=== PATIENT | female | born 1930 | race Caucasian/White ===

== ENCOUNTER 2018-06-28 12:40 | Observation (INO) | payer MEDICARE, MEDICAID ==
--- NOTE | 2018-06-28 13:32 | ED Physician Chart ---
ED Chief Complaint/HPI - Patient Information Date Seen:: 06/28/18 Time Seen:: 13:00 Chief Complaint:: cough History of Present Illness:: THIS IS AN 88 YO FEMALE WITH A CONGESTION OF THE CHEST. SHE DENIES CHEST PAIN, ABDOMINAL PAIN AND HEAD PAIN. SHE DENIES FEVER AT HOME, SHE HAS NOT HAD VOMITING OR DIARRHEA. THE COUGH IS NOT PRODUCTIVE OF SPUTUM. SHE IS TAKEN CARE OF BY SON AT HOME. THIS PATIENT WAS AT ANOTHER HOSPITAL LAST WEEK. Allergies:: Allergies Allergy/AdvReac Type Severity Reaction Status Date / Time No Known Allergies Allergy Verified 06/28/18 12:54 Vitals:: Vital Signs - 8 hr 06/28/18 12:54 Temp 97.6 F HR 74 RR 18 BP 136/64 O2 Sat % 97 Historian:: Patient, Family Member Review:: Nurse's Note Reviewed ED Review of Systems - Review of Systems General/Constitutional: No fever, No chills, No weight loss, Weakness, No diaphoresis, No edema, No loss of appetite Skin: No skin lesions, No rash, No bruising Head: No headache, No light-headedness Eyes: No loss of vision, No pain, No diplopia ENT: No earache, No nasal drainage, No sore throat, No tinnitus Neck: No neck pain, No swelling, No thyromegaly, No stiffness, No mass noted Cardio Vascular: No chest pain, No palpitations, No PND, No orthopnea, No edema Pulmonary: No SOB, Cough, No sputum, No wheezing GI: No nausea, No vomiting, No diarrhea, No pain, No melena, No hematochezia, No constipation, No hematemesis G/U: No dysuria, No frequency, No hematuria Musculoskeletal: No bone or joint pain, No back pain, No muscle pain Endocrine: No polyuria, No polydipsia Psychiatric: No prior psych history, No depression, No anxiety, No suicidal ideation Hematopoietic: No bruising, No lymphadenopathy Allergic/Immuno: No urticaria, No angioedema Neurological: No syncope, No focal symptoms, No weakness, No paresthesia, No headache, No seizure, No dizziness, No confusion, No vertigo ED Past Medical History - Past Medical History Obtainable: Yes Past Medical History: HTN, DM, CAD, CVA/TIA, Dyslipidemia, Arthritis Family History: None Social History: Non Smoker, No Alcohol, No Drug Use Surgical History: other (RIGHT KNEE SURGERY) Psychiatricy History: Dementia Family Medical History - Family Member Son History Unknown: Yes Hx Family Cancer: No Hx Family Coronary Artery Disease: No Hx Family Congestive Heart Failure: No Hx Family Hypertension: No Hx Family Stroke: No Hx Family Diabetes: No Hx Family Seizures: No Hx Family Dementia: No Hx Family HIV: No Hx Family COPD: No Hx Family Hepatitis: No Hx Family Psychiatric Problems: No ED Physical Exam - Physical Examination General/Constitutional: Awake, Well-developed, well-nourished, Alert, No distress, GCS 15, Non-toxic appearing, Ambulatory Other Gen/Cons comments:: APPEARS PALE Head: Atraumatic Eyes: Lids, conjuctiva normal, PERRL, EOMI Skin: Nl inspection, No rash, No skin lesions, No ecchymosis, Well hydrated, No lymphadenopathy ENMT: External ears, nose nl, Nasal exam nl, Lips, teeth, gums nl Neck: Nontender, Full ROM w/o pain, No JVD, No nuchal rigidity, No bruit, No mass, No stridor Respiratory: Nl effort/Exclusion, Clear to Auscultation, No Wheeze/Rhonchi/ Rales (BILATERAL MILD RHONCHI HEARD) Cardio Vascular: RRR, No murmur, gallop, rubs, NL S1 S2 GI: No tenderness/rebounding/guarding, No organomegaly, No hernia, Normal BS's, Nondistended, No mass/bruits, No McBurney tenderness : No CVA tenderness Extremities: No tenderness or effusion, Full ROM, normal strength in all extremities, No edema, Normal digits & nails Neuro/Psych: Alert/oriented, DTR's symmetric, Normal sensory exam, Normal motor strength, Judgement/insight normal, Mood normal, Normal gait, No focal deficits Misc: Normal back, No paraspinal tenderness ED Labs/Radiology/EKG Results - Lab Results Results: Abnormal Lab Results 06/28/18 06/28/18 06/28/18 13:05 13:05 13:05 WBC 7.6 RBC 4.70 Hgb 13.4 Hct 41.0 MCV 87.2 MCH 28.5 MCHC Differential 32.7 RDW 12.8 Plt Count 195 MPV 8.3 Neutrophils % 50.4 Lymphocytes % 37.6 Monocytes % 8.6 Eosinophils % 2.9 Basophils % 0.5 PT 10.6 INR 1.02 Sodium 141 Potassium 4.0 Chloride 105 Carbon Dioxide 28.3 Anion Gap 11.7 BUN 20 Creatinine 0.8 Est GFR ( Amer) TNP Est GFR (Non-Af Amer) TNP BUN/Creatinine Ratio 25.0 Glucose 122 H Calcium 9.1 Total Bilirubin 1.1 H AST 13 ALT 11 Alkaline Phosphatase 52 Troponin I Total Protein 7.1 Albumin 3.9 Globulin 3.2 Albumin/Globulin Ratio 1.2 TSH 06/28/18 06/28/18 13:05 13:05 WBC RBC Hgb Hct MCV MCH MCHC Differential RDW Plt Count MPV Neutrophils % Lymphocytes % Monocytes % Eosinophils % Basophils % PT INR Sodium Potassium Chloride Carbon Dioxide Anion Gap BUN Creatinine Est GFR ( Amer) Est GFR (Non-Af Amer) BUN/Creatinine Ratio Glucose Calcium Total Bilirubin AST ALT Alkaline Phosphatase Troponin I 0.01 Total Protein Albumin Globulin Albumin/Globulin Ratio TSH 0.90 - Radiology Results Results: HEAD CT = NAD CHEST CT = CANNOT RULE OUT INFILTRATE - EKG Interpretations EKG Time:: 13:04 Rate & Rhythm: RATE =72, SINUS [place]: LEFT AXIS ED Assessment - Assessment General Assessment: COUGH ED Septic Shock - . Is Septic Shock (SBP<90, OR Lactate>4 mmol\L) present?: No - <6hrs of presentation: Vital Signs: Vital Signs - 8 hr 06/28/18 12:54 Temp 97.6 F HR 74 RR 18 BP 136/64 O2 Sat % 97 ED Reassessment (Disposition) - Reassessment Reassessment:: PNEUMONIA DIABETES MELLITUS Reassessment Condition:: Unchanged - Diagnosis Diagnosis:: PNEUMONIA DIABETES MELLITUS - Patient Disposition Discharge/Transfer:: Acute Care w/in this hosp Admitting Medical Physician:: Josue Trivedi Condition at Disposition:: Unchanged
[2018-06-28 13:35] LABS: % BASOPHILS 0.5 % (0.0-2.0); % EOSINOPHILS 2.9 % (0.0-5.0); % LYMPHOCYTES 37.6 % (20.0-50.0); % MONOCYTES 8.6 % (2.0-10.0); % NEUTROPHILS 50.4 % (40.0-80.0); EOSINOPHILE ABSOLUTE 0.2 Th/cmm (0.1-0.4); HEMOGLOBIN 13.4 gm/dL (12-16); LYMPHOCYTE ABSOLUTE 2.9 Th/cmm (1.5-3.0); MEAN CELL VOLUME 87.2 fl (81-100); MEAN CORPUSCULAR HEMOGLOBIN 28.5 pg (27.0-31.0); MEAN CORPUSCULAR HGB CONC 32.7 pg (28.0-36.0); MEAN PLATELET VOLUME 8.3 fl; MONOCYTE ABSOLUTE 0.7 Th/cmm (0.3-1.0); NEUTROPHILE ABSOLUTE 3.8 Th/cmm (1.8-8.0); PLATELET COUNT 195 Th/cmm (150-400); RED CELL DISTRIBUTION WIDTH 12.8 % (11.5-20.0); WHITE BLOOD COUNT 7.6 Th/cmm (4.8-10.8)
[2018-06-28 13:38] LABS: INR 1.02 (0.5-1.4); PROTHROMBIN TIME (TEST) 10.6 SECONDS (9.5-11.5)
[2018-06-28 13:58] LABS: ALB/GLOB RATIO 1.2 (1.0-1.8); ALBUMIN 3.9 gm/dL (3.7-5.3); ALKALINE PHOSPHATASE 52 U/L (34-104); ANION GAP 11.7 (7.0-16.0); BILIRUBIN,TOTAL 1.1 mg/dL (0.3-1.0); BUN - UREA NITROGEN 20 mg/dL (7-25); CALCIUM SERUM 9.1 mg/dL (8.6-10.3); CARBON DIOXIDE 28.3 mEq/L (21.0-31.0); CHLORIDE 105 mEq/L (98-107); CREATININE - SERUM 0.8 mg/dL (0.6-1.2); GLUCOSE 122 mg/dL (70-105); SGOT 13 U/L (13-39); SGPT/ALT 11 U/L (7-52); SODIUM SERUM 141 mEq/L (136-145); TOTAL PROTEIN,SERUM 7.1 gm/dL (6.0-8.3)
[2018-06-28] MEDS ORDERED: Pneumococcal Vaccine 0.5 mL Vial IM ONE (17:15)
[2018-06-28] MEDS ORDERED: Influenza Vaccine (65 yr & older) 0.5 ml Syr IM ONE (17:15)
[2018-06-28] MEDS: Levofloxacin 250mg/50mL 250 MG/50 ML BAG IV SCH (18:02)
--- NOTE | 2018-06-29 02:13 | History & Physical ---
ADMIT DATE: 06/28/2018 CHIEF COMPLAINT: Cough. HISTORY OF PRESENT ILLNESS: An 88-year-old female with a past medical history of hypertension, diabetes mellitus type 2, coronary artery disease, CVA, TIA, dyslipidemia, and arthritis, admitted to the hospital for congestion of the chest. On initial evaluation, the patient was afebrile with a temperature of 97.6 degrees Fahrenheit and WBC count was 7600. She had nonproductive sputum and she was taken care of by her son at home. She just discharged from the hospital last week. PAST MEDICAL HISTORY: Includes hypertension, diabetes mellitus type 2, coronary artery disease, CVA, TIA, dyslipidemia, arthritis. PAST SURGICAL HISTORY: Right knee surgery. PSYCHIATRIC HISTORY: Dementia. FAMILY HISTORY: Unknown. SOCIAL HISTORY: The patient lives at home. REVIEW OF SYSTEMS: Unable to give any appropriate history. The patient has some nonproductive cough. No shortness of breath. PHYSICAL EXAMINATION: VITAL SIGNS: Current vital signs shows temperature is 98 degrees Fahrenheit, pulse 87, respirations 18, blood pressure 167/62. GENERAL: The patient is comfortable lying in the bed, not in acute distress. HEENT: Head is normocephalic, atraumatic. Oral cavity moist, pink tongue. Eyes: No pallor, no icterus. Pupils PERRLA, EOMI. NECK: Supple, no JVD, no carotid bruit. Trachea midline. CHEST: Bilateral breath sounds. No crackles or wheezing. HEART: S1, S2 within normal limits. Regular rhythm. No murmur, no gallop. ABDOMEN: Soft, nontender, nondistended. Bowel sounds present. EXTREMITIES: No cyanosis, no clubbing, no edema. NEUROLOGIC: Alert and awake. LABORATORY DATA: Current lab shows WBC count 7600, hemoglobin 10.4, hematocrit 41, platelets are 195,000, neutrophil 54.4%. INR is 1.02. Sodium is 141, potassium 4, chloride 105, bicarbonate is 28, BUN is 20, creatinine 0.8, glucose is 122. IMPRESSION: 1. Bronchitis versus pneumonia. 2. Dementia. 3. Diabetes mellitus type 2. 4. Hypertension. 5. Cerebrovascular accident. 6. Arthritis, degenerative joint disease. 7. Coronary artery disease. RECOMMENDATIONS: We will continue home medications and start Levaquin. JOB# [id number]
[2018-06-29 06:55] LABS: % BASOPHILS 0.5 % (0.0-2.0); % EOSINOPHILS 3.9 % (0.0-5.0); % LYMPHOCYTES 34.2 % (20.0-50.0); % MONOCYTES 9.4 % (2.0-10.0); EOSINOPHILE ABSOLUTE 0.3 Th/cmm (0.1-0.4); HEMATOCRIT 37.3 % (41.0-60); HEMOGLOBIN 12.1 gm/dL (12-16); LYMPHOCYTE ABSOLUTE 2.8 Th/cmm (1.5-3.0); MEAN CELL VOLUME 88.7 fl (81-100); MEAN CORPUSCULAR HEMOGLOBIN 28.7 pg (27.0-31.0); MEAN CORPUSCULAR HGB CONC 32.4 pg (28.0-36.0); MEAN PLATELET VOLUME 8.5 fl; MONOCYTE ABSOLUTE 0.8 Th/cmm (0.3-1.0); NEUTROPHILE ABSOLUTE 4.4 Th/cmm (1.8-8.0); PLATELET COUNT 187 Th/cmm (150-400); RED BLOOD COUNT 4.21 Mil/cmm (3.80-5.20); RED CELL DISTRIBUTION WIDTH 12.4 % (11.5-20.0); WHITE BLOOD COUNT 8.3 Th/cmm (4.8-10.8)
[2018-06-29 08:21] LABS: ALB/GLOB RATIO 1.2 (1.0-1.8); ALBUMIN 3.5 gm/dL (3.7-5.3); ALKALINE PHOSPHATASE 46 U/L (34-104); BILIRUBIN,TOTAL 0.8 mg/dL (0.3-1.0); BUN - UREA NITROGEN 18 mg/dL (7-25); CALCIUM SERUM 8.5 mg/dL (8.6-10.3); CHLORIDE 108 mEq/L (98-107); CREATININE - SERUM 0.6 mg/dL (0.6-1.2); GLUCOSE 123 mg/dL (70-105); SGOT 15 U/L (13-39); SGPT/ALT 11 U/L (7-52); SODIUM SERUM 141 mEq/L (136-145); TOTAL PROTEIN,SERUM 6.4 gm/dL (6.0-8.3)
[2018-06-29] MEDS: Calcium Carb/Vit D 500 mg/200 U Tab PO SCH ×3 (08:45→21:19)
--- NOTE | 2018-06-29 09:55 | Diagnostic Imaging Report ---
CHEST X-RAY: AP view INDICATION: Pneumonia COMPARISON: CT chest the prior day FINDINGS: Increased interstitial lung markings are noted with elevation of right hemidiaphragm. No focal consolidation or effusions. Cardiomegaly is noted atherosclerosis. Biapical pleural thickening is noted. Degenerative changes of the spine and shoulders are noted. IMPRESSION: Increased interstitial lung markings probably due to chronic changes, however, a mild degree of congestion and interstitial infiltrates cannot be excluded. Cardiomegaly and atherosclerotic vascular disease.
--- NOTE | 2018-06-29 10:07 | Diagnostic Imaging Report ---
Head CT without intravenous contrast Indication: CVA Comparison: None Technique: Axial images were obtained from the vertex to the skull base without IV contrast. Coronal reconstructions were made. Total DLP: 512, CTDI30 FINDINGS: Exam is limited due to motion. Images of the brain obtained without contrast demonstrate no evidence of an acute hemorrhage. Atrophy is noted with mild white matter disease. There is generalized prominence of the ventricular system. The basal cisterns are patent. No mass effect or midline shift. There is opacification of the right frontal sinus. There is partial opacification of the right ethmoid sinuses. No significant focal soft tissue swelling. IMPRESSION: Limited exam due to motion. No evidence of acute intracranial hemorrhage. Atrophy. Mild white matter disease is noted which is nonspecific and may be due to chronic microvessel ischemia. If necessary MRI follow-up may be obtained. Prominent ventricular system which may be due to patient's atrophy, however, other etiologies such as normal pressure hydrocephalus cannot be excluded. Please correlate clinically. Atherosclerotic vascular disease. Right frontal sinusitis possibly chronic. There is also partial opacification right ethmoid air cells.
--- NOTE | 2018-06-29 10:09 | Diagnostic Imaging Report ---
CT Chest without IV contrast HISTORY: Pain COMPARISON: None. Technique: Axial images were obtained from the base of the neck to the upper abdomen without IV contrast. Reconstructions were made. Total DLP 207, CTD I 7.8 Findings: Evaluation of the mediastinum is limited due to lack of IV contrast. No evidence of mediastinal lymphadenopathy. Heart size is normal. Moderate atherosclerosis is noted. No evidence of an aneurysm. No pericardial effusion. Evaluation lungs demonstrates chronic lung changes with hypoventilatory and atelectatic changes. Minimal right basal opacity atelectatic and consolidative changes are noted. No pleural effusions. The upper abdomen demonstrates evidence of prior cholecystectomy. Degenerative changes of the spine are noted with accentuation of the thoracic kyphosis. IMPRESSION: Hypoventilatory and atelectatic lung changes. Minimal right basal passive atelectatic and consolidative changes are noted. Chronic lung changes. Atherosclerotic vascular disease. Evidence of prior cholecystectomy.
--- NOTE | 2018-06-29 17:03 | Consultation ---
DATE OF CONSULTATION: 06/29/2018 HISTORY OF PRESENT ILLNESS: This is an 88-year-old female patient who has been complaining of upper respiratory tract infection. Following this, the patient was seen and admitted for possible pneumonia. PAST MEDICAL HISTORY: Hypertension, diabetes mellitus type 2, stable angina, history of TIA, CVA, arthritis, dementia, right knee surgery. FAMILY HISTORY: Unremarkable. SOCIAL HISTORY: No history of smoking, alcohol abuse. ALLERGIES: No known allergies. PHYSICAL EXAMINATION: VITAL SIGNS: Blood pressure 130/80, pulse 70, respirations 20, temperature 99. HEAD: Normocephalic. No lumps or bruises. EYES: Pupils equal, reactive to light. Fundi show AV nicking, sclerae white, conjunctivae pink. NECK: Carotid 2+. Normal upstroke. JVD 10 cm above sternal angle. Thyroid not palpable. Lymph nodes not palpable. CHEST: Shows increased AP diameter. No kyphosis, scoliosis. LUNGS: Bilateral bronchovesicular breath sounds. Bilateral wheezing, rhonchi, prolonged expiration. HEART: PMI fifth intercostal space with lateral to midclavicular line. S1, S2, S3, S4. ABDOMEN: Soft. Liver, spleen not palpable. No organomegaly. Bowel sounds active. NEUROLOGIC: No focal neurological deficit. EXTREMITIES: Peripheral pulses 2+. No pedal edema. CLINICAL IMPRESSION: Acute respiratory failure, rule out pneumonia, hypertension, diabetes mellitus type 2, stable angina, cerebrovascular accident with late effect, transient ischemic attack, arthritis, dementia, and right knee surgery. PLAN: IV antibiotics. Monitor the patient closely for arrhythmias. [facility]# [id number]
[2018-06-29] MEDS: Levofloxacin 250mg/50mL 250 MG/50 ML BAG IV SCH (17:14)
--- NOTE | 2018-06-29 21:23 | Consultation ---
DATE OF CONSULTATION: 06/29/2018 PATIENT OF: Dr. Josue Trivedi. Thank you very much for this consultation. HISTORY OF PRESENT ILLNESS: The patient is an 88-year-old female, lives at home and has a caregiver who has had some congestion on and off. The patient apparently is getting weaker and there is a plan to place her in the fpc. The patient was admitted for treatment and management. PAST MEDICAL HISTORY: Dementia. SOCIAL HISTORY: No smoking or drinking. REVIEW OF SYSTEMS: GENERAL: Some weakness and fatigue. CARDIOVASCULAR: No chest pain or palpations. RESPIRATORY: Some congestion, resolved. GASTROINTESTINAL: No nausea or vomiting. PHYSICAL EXAMINATION: GENERAL: Awake, alert, not in acute distress. VITAL SIGNS: Temperature 97.7, pulse 70, respirations 18, blood pressure 136/51, saturation 96%. HEENT: Atraumatic, normocephalic. Pupils react to light and accommodation. Ears, nose, and throat normal. NECK: Supple. No JVD. CHEST: There are good breath sounds. No wheezing or crackles. HEART: Regular rhythm. ABDOMEN: Soft. EXTREMITIES: No edema. LABORATORY DATA: WBC is 8.3, hemoglobin 12.1, platelets 187. Sodium is 141, potassium 4.0, BUN 19, creatinine 0.6. Chest x-ray, some chronic changes, bronchitis picture. IMPRESSION: An 88-year-old female with acute bronchitis, rule out early pneumonia. PLAN: 1. Antibiotics. 2. Nebulizer treatment. 3. Follow up chest x-ray. I will follow the patient with you. Thank you very much for this consultation. JOB# [id number]
--- NOTE | 2018-06-30 06:23 | Progress Notes ---
DATE: 06/29/2018 INTERNAL MEDICINE NOTE SUBJECTIVE: The patient lying in the bed, not in acute distress. No fever, no chills. OBJECTIVE: VITAL SIGNS: Current vital signs shows temperature is 98 degrees Fahrenheit, pulse 69, respirations 20, blood pressure 120/60. GENERAL: The patient is comfortable, in no distress. HEENT: Head is normocephalic and atraumatic. Oral cavity moist. Colt tongue. NECK: Supple, no JVD, no carotid bruit. Trachea midline. CHEST: Bilateral breath sounds. No crackles or wheezing. HEART: S1, S2 within normal limits. Regular rhythm. No murmur or gallop. ABDOMEN: Soft, nontender, nondistended. Bowel sounds present. EXTREMITIES: No cyanosis, no clubbing, no edema. NEUROLOGIC: Alert, awake, oriented x 3. No focal deficit. LABORATORY DATA: Current lab shows WBC count is 8300, hemoglobin 12.1, hematocrit 37.3, platelets are 187,000, neutrophil is 52%. Sodium 141, potassium 4, chloride 108, bicarbonate is 25, BUN is 18, creatinine is 0.6, glucose is 123. Blood culture one of the two sets grew gram-positive cocci in clusters. IMPRESSION: 1. Gram positive cocci in the blood. Staphylococcal bacteremia. 2. Bronchitis and pneumonia. 3. Dementia. 4. Diabetes mellitus type 2. 5. Hypertension. 6. Cerebrovascular accident. 7. Arthritis. 8. Coronary artery disease. RECOMMENDATIONS: Continue Levaquin and add vancomycin IV. JOB# [id number]
--- NOTE | 2018-06-30 08:30 | Diagnostic Imaging Report ---
Portable chest x-ray Time: 0 735 History: Dense of breath Allowing for portable technique the heart size is normal. No focal pulmonary parenchymal processes. No hilar or mediastinal abnormalities. Bony thorax remarkable for degenerative changes. Impression: No acute abnormalities.
[2018-06-30] MEDS: Calcium Carb/Vit D 500 mg/200 U Tab PO SCH ×3 (08:43→20:39)
[2018-06-30] MEDS ORDERED: Probiotic Screen MC PRN (09:00)
[2018-06-30] MEDS: Lactobacillus Rhamnosus GG 15 Billion CFU CAP.SPRINK PO SCH (11:08)
--- NOTE | 2018-06-30 14:15 | Infectious Disease Prog Note ---
Infectious Disease Subjective - Review of Systems Service Date: 06/30/18 Subjective: There is no new change, no fever. Infectious Disease Objective - Results Result Diagrams: 06/29/18 05:45 06/29/18 05:45 Recent Labs: Laboratory Last Values WBC 8.3 Th/cmm (4.8-10.8) 06/29/18 05:45 RBC 4.21 Mil/cmm (3.80-5.20) 06/29/18 05:45 Hgb 12.1 gm/dL (12-16) 06/29/18 05:45 Hct 37.3 % (41.0-60) L 06/29/18 05:45 MCV 88.7 fl (81-100) 06/29/18 05:45 MCH 28.7 pg (27.0-31.0) 06/29/18 05:45 MCHC Differential 32.4 pg (28.0-36.0) 06/29/18 05:45 RDW 12.4 % (11.5-20.0) 06/29/18 05:45 Plt Count 187 Th/cmm (150-400) 06/29/18 05:45 MPV 8.5 fl 06/29/18 05:45 Neutrophils % 52.0 % (40.0-80.0) 06/29/18 05:45 Lymphocytes % 34.2 % (20.0-50.0) 06/29/18 05:45 Monocytes % 9.4 % (2.0-10.0) 06/29/18 05:45 Eosinophils % 3.9 % (0.0-5.0) 06/29/18 05:45 Basophils % 0.5 % (0.0-2.0) 06/29/18 05:45 PT 10.6 SECONDS (9.5-11.5) 06/28/18 13:05 INR 1.02 (0.5-1.4) 06/28/18 13:05 Sodium 141 mEq/L (136-145) 06/29/18 05:45 Potassium 4.0 mEq/L (3.5-5.1) 06/29/18 05:45 Chloride 108 mEq/L (98-107) H 06/29/18 05:45 Carbon Dioxide 25.0 mEq/L (21.0-31.0) 06/29/18 05:45 Anion Gap 12.0 (7.0-16.0) 06/29/18 05:45 BUN 18 mg/dL (7-25) 06/29/18 05:45 Creatinine 0.6 mg/dL (0.6-1.2) 06/29/18 05:45 Est GFR ( Amer) TNP 06/29/18 05:45 Est GFR (Non-Af Amer) TNP 06/29/18 05:45 BUN/Creatinine Ratio 30.0 06/29/18 05:45 Glucose 123 mg/dL (70-105) H 06/29/18 05:45 Calcium 8.5 mg/dL (8.6-10.3) L 06/29/18 05:45 Total Bilirubin 0.8 mg/dL (0.3-1.0) 06/29/18 05:45 AST 15 U/L (13-39) 06/29/18 05:45 ALT 11 U/L (7-52) 06/29/18 05:45 Alkaline Phosphatase 46 U/L (34-104) 06/29/18 05:45 Troponin I 0.01 ng/mL (0.01-0.05) 06/28/18 13:05 Total Protein 6.4 gm/dL (6.0-8.3) 06/29/18 05:45 Albumin 3.5 gm/dL (3.7-5.3) L 06/29/18 05:45 Globulin 2.9 gm/dL 06/29/18 05:45 Albumin/Globulin Ratio 1.2 (1.0-1.8) 06/29/18 05:45 TSH 0.90 uIU/ml (0.34-5.60) 06/28/18 13:05 - Physical Exam Vitals and I&O: Vital Signs Temp 97.0 F 06/30/18 11:54 Pulse 69 06/30/18 11:54 Resp 18 06/30/18 11:54 BP 126/63 06/30/18 11:54 Pulse Ox 99 06/30/18 11:54 Intake & Output 06/29/18 06/30/18 06/30/18 18:59 06:59 18:59 Intake Total 500 240 Balance 500 240 Weight (lbs) 54.431 kg 52.617 kg Intake: Oral 500 240 Other: # Voids 3 2 # Bowel Movements 0 0 Weight Source Bedscale Bedscale Active Medications: Current Medications Calcium/Vitamin D (Oscal W/Vitamin D) 1 tab PO TID [facility]ER[facility] Stop: 08/28/18 08:59 Last Admin: 06/30/18 13:36 Dose: 1 tab Duloxetine HCl (Cymbalta) 30 mg PO DAILY [facility] Stop: 08/28/18 08:59 Last Admin: 06/30/18 11:13 Dose: Not Given Levofloxacin (Levaquin Pb) 250 mg in 50 mls @ 50 mls/hr IV Q24HR [facility] Stop: 08/27/18 17:29 Last Admin: 06/29/18 17:14 Dose: 50 mls/hr Vancomycin HCl 1 gm/ Sodium (Chloride) 250 mls @ 165 mls/hr IV Q24H [facility] Stop: 08/30/18 05:59 Lactobacillus Rhamnosus (Culturelle 15b) 1 each PO DAILY [facility] Stop: 08/29/18 08:59 Last Admin: 06/30/18 11:08 Dose: 1 each Lisinopril (Zestril) 2.5 mg PO DAILY [facility] Stop: 08/28/18 08:59 Last Admin: 06/30/18 08:41 Dose: 2.5 mg Memantine (Namenda) 10 mg PO BID [facility] Stop: 08/28/18 08:59 Last Admin: 06/30/18 08:43 Dose: 10 mg Metformin HCl (Glucophage) 500 mg PO BIDWM [facility] Stop: 08/28/18 07:59 Last Admin: 06/30/18 08:41 Dose: 500 mg Miscellaneous (Vancomycin Iv Per Pharmacy) 1 ea MC PRN [facility] Stop: 08/29/18 05:14 Miscellaneous (Probiotic Screen) 1 ea MC PRN PRN PRN Reason: PROTOCOL Stop: 08/29/18 08:59 Simvastatin (Zocor) 10 mg PO HS [facility] Stop: 08/28/18 20:59 Last Admin: 06/29/18 21:19 Dose: 10 mg Tramadol HCl (Ultram) 50 mg PO Q6H PRN PRN Reason: Severe Pain Stop: 08/27/18 23:47 General: no acute distress, well developed, well nourished HEENT: atraumatic, normocephalic, PERRLA, EOMI Neck: supple, no thyromegaly Cardiovascular: S1S2, regular Lungs: no clear to auscultation bilaterally, no clear to percussion Abdomen: soft, tender, no distended, no mass Extremities: no cyanosis, no clubbing, no edema Neurological: awake, alert, oriented Skin: intact Infectious Disease Assmt/Plan - Assessment Assessment: 1. Gram positive cocci in the blood. Staphylococcal CN contaminant. 2. Bronchitis and pneumonia. 3. Dementia. 4. Diabetes mellitus type 2. 5. Hypertension. 6. Cerebrovascular accident. 7. Arthritis. 8. Coronary artery disease. - Plan Plan: Dc patient. levaquin po for 5 more days.
--- NOTE | 2018-07-01 01:14 | Progress Notes ---
DATE: 06/30/2018 CHIEF COMPLAINT: The patient presented to the ER on 06/28/2018 for cough. HISTORY OF PRESENT ILLNESS AND HOSPITAL COURSE: The patient is an 88-year-old female with a past medical history of hypertension, diabetes mellitus type 2, coronary artery disease, CVA, TIA, dyslipidemia, arthritis and wheelchair bound, brought from the home for congestion and cough. On initial evaluation, the patient was afebrile with temperature 97.6 degrees Fahrenheit and WBC count 7600. A chest x-ray was performed, which was showing no acute infiltrate. CT chest was also performed and it showed hypoventilation, atelectatic changes and minimal right basal passive atelectasis and consolidative changes are noted. Initially, the patient was admitted and levofloxacin was started. The patient was diagnosed to have pneumonia. The patient was doing well. The patient had no fever and no leukocytosis. The patient will be discharged home on Levaquin p.o. for 5 more days. Follow up with Dr. Mullins as an outpatient. DISCHARGE DIAGNOSES: 1. Pneumonia, cough, bronchitis. 2. Diabetes mellitus type 2. 3. Hypertension. 4. Cerebrovascular accident, transient ischemic attack. 5. Arthritis. 6. Coronary artery disease. RECOMMENDATIONS: Continue Levaquin for 5 days and continue his home medications. Follow up with Dr. Mullins. JOB# [id number]
[2018-07-01] MEDS: Lactobacillus Rhamnosus GG 15 Billion CFU CAP.SPRINK PO SCH (09:12)
[2018-07-01] MEDS: Calcium Carb/Vit D 500 mg/200 U Tab PO SCH ×2 (09:13→13:06)
--- NOTE | 2018-07-01 13:09 | Infectious Disease Prog Note ---
Infectious Disease Subjective - Review of Systems Service Date: 07/01/18 Subjective: There is no new change, no fever. PT eval was reviewed. Infectious Disease Objective - Results Result Diagrams: 06/29/18 05:45 06/29/18 05:45 Recent Labs: Laboratory Last Values WBC 8.3 Th/cmm (4.8-10.8) 06/29/18 05:45 RBC 4.21 Mil/cmm (3.80-5.20) 06/29/18 05:45 Hgb 12.1 gm/dL (12-16) 06/29/18 05:45 Hct 37.3 % (41.0-60) L 06/29/18 05:45 MCV 88.7 fl (81-100) 06/29/18 05:45 MCH 28.7 pg (27.0-31.0) 06/29/18 05:45 MCHC Differential 32.4 pg (28.0-36.0) 06/29/18 05:45 RDW 12.4 % (11.5-20.0) 06/29/18 05:45 Plt Count 187 Th/cmm (150-400) 06/29/18 05:45 MPV 8.5 fl 06/29/18 05:45 Neutrophils % 52.0 % (40.0-80.0) 06/29/18 05:45 Lymphocytes % 34.2 % (20.0-50.0) 06/29/18 05:45 Monocytes % 9.4 % (2.0-10.0) 06/29/18 05:45 Eosinophils % 3.9 % (0.0-5.0) 06/29/18 05:45 Basophils % 0.5 % (0.0-2.0) 06/29/18 05:45 PT 10.6 SECONDS (9.5-11.5) 06/28/18 13:05 INR 1.02 (0.5-1.4) 06/28/18 13:05 Sodium 141 mEq/L (136-145) 06/29/18 05:45 Potassium 4.0 mEq/L (3.5-5.1) 06/29/18 05:45 Chloride 108 mEq/L (98-107) H 06/29/18 05:45 Carbon Dioxide 25.0 mEq/L (21.0-31.0) 06/29/18 05:45 Anion Gap 12.0 (7.0-16.0) 06/29/18 05:45 BUN 18 mg/dL (7-25) 06/29/18 05:45 Creatinine 0.6 mg/dL (0.6-1.2) 06/29/18 05:45 Est GFR ( Amer) TNP 06/29/18 05:45 Est GFR (Non-Af Amer) TNP 06/29/18 05:45 BUN/Creatinine Ratio 30.0 06/29/18 05:45 Glucose 123 mg/dL (70-105) H 06/29/18 05:45 Calcium 8.5 mg/dL (8.6-10.3) L 06/29/18 05:45 Total Bilirubin 0.8 mg/dL (0.3-1.0) 06/29/18 05:45 AST 15 U/L (13-39) 06/29/18 05:45 ALT 11 U/L (7-52) 06/29/18 05:45 Alkaline Phosphatase 46 U/L (34-104) 06/29/18 05:45 Troponin I 0.01 ng/mL (0.01-0.05) 06/28/18 13:05 Total Protein 6.4 gm/dL (6.0-8.3) 06/29/18 05:45 Albumin 3.5 gm/dL (3.7-5.3) L 06/29/18 05:45 Globulin 2.9 gm/dL 06/29/18 05:45 Albumin/Globulin Ratio 1.2 (1.0-1.8) 06/29/18 05:45 TSH 0.90 uIU/ml (0.34-5.60) 06/28/18 13:05 - Physical Exam Vitals and I&O: Vital Signs Temp 97.4 F 07/01/18 11:42 Pulse 69 07/01/18 11:42 Resp 18 07/01/18 11:42 BP 129/55 07/01/18 11:42 Pulse Ox 97 07/01/18 11:42 Intake & Output 06/30/18 07/01/18 07/01/18 18:59 06:59 18:59 Intake Total 400 150 Balance 400 150 Weight (lbs) 52.617 kg 52.707 kg Intake: Oral 400 150 Other: # Voids 2 2 # Bowel Movements 0 1 Weight Source Bedscale Bedscale Active Medications: Current Medications Calcium/Vitamin D (Oscal W/Vitamin D) 1 tab PO TID [facility] Stop: 08/28/18 08:59 Last Admin: 07/01/18 13:06 Dose: 1 tab Duloxetine HCl (Cymbalta) 30 mg PO DAILY [facility] Stop: 08/28/18 08:59 Last Admin: 07/01/18 09:13 Dose: 30 mg Lactobacillus Rhamnosus (Culturelle 15b) 1 each PO DAILY [facility] Stop: 08/29/18 08:59 Last Admin: 07/01/18 09:12 Dose: 1 each Levofloxacin (Levaquin) 250 mg PO DAILY [facility] Stop: 08/30/18 08:59 Last Admin: 07/01/18 09:13 Dose: 250 mg Lisinopril (Zestril) 2.5 mg PO DAILY [facility] Stop: 08/28/18 08:59 Last Admin: 07/01/18 09:14 Dose: 2.5 mg Memantine (Namenda) 10 mg PO BID [facility] Stop: 08/28/18 08:59 Last Admin: 07/01/18 09:13 Dose: 10 mg Metformin HCl (Glucophage) 500 mg PO BIDWM [facility] Stop: 08/28/18 07:59 Last Admin: 07/01/18 09:13 Dose: 500 mg Miscellaneous (Vancomycin Iv Per Pharmacy) 1 [facility] PRN [facility] Stop: 08/29/18 05:14 Miscellaneous (Probiotic Screen) 1 [facility] PRN PRN PRN Reason: PROTOCOL Stop: 08/29/18 08:59 Simvastatin (Zocor) 10 mg PO HS [facility] Stop: 08/28/18 20:59 Last Admin: 06/30/18 20:39 Dose: 10 mg Tramadol HCl (Ultram) 50 mg PO Q6H PRN PRN Reason: Severe Pain Stop: 08/27/18 23:47 General: no acute distress HEENT: atraumatic, normocephalic, PERRLA, EOMI Neck: supple, no thyromegaly Cardiovascular: S1S2, regular Lungs: clear to auscultation bilaterally, clear to percussion Abdomen: soft, no tender, no distended Extremities: no cyanosis, no clubbing, no edema Neurological: awake, alert Skin: intact Infectious Disease Assmt/Plan - Assessment Assessment: 1. Gram positive cocci in the blood. Staphylococcal CN contaminant. 2. Bronchitis and pneumonia. 3. Dementia. 4. Diabetes mellitus type 2. 5. Hypertension. 6. Cerebrovascular accident. 7. Arthritis. 8. Coronary artery disease. - Plan Plan: Dc patient to SNF. levaquin po for 4 more days. Nutritional Asmnt/Malnutr-PDOC - Dietary Evaluation Malnutrition Findings (Please click <Entered> for more info): Nutritional Asmnt/Malnutrition Start: 06/30/18 14: 53 Text: Status: Complete Freq: Protocol: Document 06/30/18 15:02 LATOYA (Rec: 06/30/18 15:13 LATOYA [email or web address]) Nutritional Asmnt/Malnutrition Patient General Information Nutritional Screening High Risk Diagnosis FTT Pertinent Medical Hx/Surgical Hx HTN, DM, CAD, CVA/TIA, dyslipidemia, arthritis, right knee surgery, dementia Subjective Information Pt who came from home seen sitting up in bed and having lunch by herself, Lebanese speaking. Pt appeared good appetite. Per MARGIN CLERK, pt consumed 85% of breakfast today. Per EMR, PO intake 50-75% since admitted. Current Diet Order/ Nutrition Support CCHO 60gm, mech soft chopped Pertinent Medications oscal w/vit D, culturelle, levaquin, glucophage Pertinent Labs 06/29 Cl 108, glucose 123, Ca 8 .5 06/28 glucose 122, Ca 9.1 Nutritional Hx/Data Height 1.63 m Height (Calculated Centimeters) 162.6 Current Weight (lbs) 52.617 kg Weight (Calculated Kilograms) 52.6 Weight (Calculated Grams) 11063.7 [place] Body Weight 120 Body Mass Index (BMI) 19.9 Weight Status Approriate GI Symptoms GI Symptoms None Last BM none noted Difficult in: None Skin Integrity/Comment: intact Current %PO Good (75-100%) Estimated Nutritional Goals BEE in Kcals: Using Current wt Calories/Kcals/Kg 25-30 Kcals Calculated 4949-7683 Protein: Using Current wt Protein g/k-1.2 Protein Calculated 53-64 Fluid: ml 1325-1590ml (1ml/kcal) Nutritional Problem 1. Problem Problem altered nutrition relatedl abs Etiology endocrine dysfunction Signs/Symptoms: glucose 122-123 Malnutrition Alert Is there a minimum of two criteria No selected? Query Text:Check all the applicable criteria. A minimum of two criteria are recommended for diagnosis of either severe or non-severe malnutrition. Malnutrition Related to Morbid Obesity Malnutrition related to morbid obesity No Intervention/Recommendation Comments 1. Continue with [facility] 60gm [facility] soft chopped diet as ordered. 2. Monitor PO intake, wt, labs and skin integrity 3. F/U as low risk in 7 days, 07/07, PO check 07/02 Expected Outcomes/Goals Expected Outcomes/Goals 1. PO intake to meet at least 75% of nutritional needs. 2. Wt stability, skin to remain intact, labs to approach WNL.
--- NOTE | 2018-07-02 11:37 | Discharge Summary ---
DATE OF DISCHARGE: 07/01/2018 CHIEF COMPLAINT: The patient presented to the ER for the cough and weakness. HISTORY OF PRESENT ILLNESS: The patient is an 88-year-old female with a past medical history of hypertension, diabetes mellitus type 2, coronary artery disease, CVA, TIA, dyslipidemia, arthritis and wheelchair bound, brought from home for congestion and cough. The patient was afebrile and WBC count within normal limit. CT scan of the chest showed hypoventilation, atelectasis changes, right base atelectasis and consolidation. The patient was started on levofloxacin. As patient required physical therapy evaluation rehab, so the patient was discharged to nursing facility. DISCHARGE CONDITION: Stable. DISCHARGE DISPOSITION: To [facility]. DISCHARGE MEDICATIONS: As per medication reconciliation sheet. IMPRESSION: 1. Bronchitis, pneumonia. 2. Dementia. 3. Diabetes mellitus type 2. 4. Hypertension. 5. Cerebrovascular accident. 6. ____. JOB# [id number]
== END 2018-07-01 15:15 ==
LOC: ER 12:40 → INTOOBSV 15:20 → MSI 15:20
PROVIDERS: ADMIT Internal Medicine Infectious Disease; ATTEND Internal Medicine Infectious Disease
DX: J18.9 Pneumonia, unspecified organism (principal); J40 Bronchitis, not specified as acute or chronic; M19.90 Unspecified osteoarthritis, unspecified site; E78.5 Hyperlipidemia, unspecified; I63.9 Cerebral infarction, unspecified; G45.9 Transient cerebral ischemic attack, unspecified; R53.1 Weakness; F03.90 Unspecified dementia, unspecified severity, without behavioral disturbance, psychotic disturbance, mood disturbance, and anxiety; E11.9 Type 2 diabetes mellitus without complications; I10 Essential (primary) hypertension; I25.10 Atherosclerotic heart disease of native coronary artery without angina pectoris; R74.0 Nonspecific elevation of levels of transaminase and lactic acid dehydrogenase [LDH]
CPT/HCPCS: 99285; 97162; 93005; 97110; 97530; 71045 ×2; 70450; 71250; 84484; 36415 ×2; 84443; 85025 ×2; 85610; 80053 ×2; 87081; 87040 ×2; 96365; 96366; 96367; J3370; J7040; G0378 ×72; G8978; G8979; J1956; X3904; Z7610